=== PATIENT | male | born 1955 | race African-American/Black ===

== ENCOUNTER 2023-11-11 18:49 | Inpatient (IN) | payer BC, MEDICARE ==
[2023-11-11 21:36] VITALS: BMI 35.8
[2023-11-11] MEDS ORDERED: Bisacodyl 5 MG TAB PO PRN (21:58)
[2023-11-11] MEDS ORDERED: Ibuprofen 200 MG TAB PO PRN (21:58)
[2023-11-11] MEDS ORDERED: Acetaminophen 325 MG TAB PO PRN (21:58)
[2023-11-11] MEDS ORDERED: Ondansetron ODT 4 MG TAB PO PRN (21:58)
[2023-11-11] MEDS: Lactated Ringer's 1,000 ML IV SCH (23:23)
[2023-11-12 00:19] LABS: Creatinine, Urine 60.39 mg/dL (63-166)
[2023-11-12 07:43] LABS: Hemoglobin A1c 7.1 % (4.0-6.0)
[2023-11-12 08:06] LABS: ALT (SGPT) 24 U/L (8-55); AST (SGOT) 41 U/L (5-34); Albumin 3.3 g/dL (3.4-4.8); Alkaline Phosphatase 73 U/L (40-110); Anion Gap 14 mmol/L (10-20); BUN (Urea Nitrogen) 14 mg/dL (8.4-25.7); Bilirubin, Total 0.5 mg/dL (0.2-1.2); Calc. Creatinine Clearance 45 mL/min (70-130); Calcium 8.8 mg/dL (7.8-10.44); Carbon Dioxide 22 mmol/L (23-31); Chloride 114 mmol/L (98-107); Estimated GFR 28; Globulin 3.4 g/dL (2.4-3.5); Glucose 166 mg/dL (80-115); Potassium 3.9 mmol/L (3.5-5.1); Protein, Total 6.7 g/dL (5.8-8.1); Sodium 146 mmol/L (136-145)
[2023-11-12 08:12] LABS: Hematocrit 37.4 % (42.0-52.0); Hemoglobin 11.3 g/dL (14.0-18.0); Mean Corpuscular HGB CONC 30.2 g/dL (32.0-36.0); Mean Corpuscular Hemoglobin 28.4 pg (27.0-31.0); Mean Platelet Volume 12.5 fL (7.4-10.4); Platelet Count 323 10x3/uL (130-400); RBC Distribution Width 15.9 % (11.5-14.5); Red Blood Cell (RBC) Count 3.98 mill/uL (4.70-6.10)
[2023-11-12] MEDS ORDERED: Acetaminophen 325 MG TAB ONE (09:55)
[2023-11-12] MEDS ORDERED: Amlodipine 10 MG TAB ONE (09:55)
[2023-11-12 10:15] LABS: Band 7 % (5-11); Large Platelets 32.8 % (0-5); Lymphocytes 29 % (21-51); Metamyelocyte 3 % (0-0); Monocytes 20 % (0-10); Neutrophil 22 % (42-75); Other Cell Types 17.2; Platelet Adequacy Comment Platelets Normal; RBC Morphology Within Normal Limits; Reactive Lymphocytes 3 % (0-10); Smudge Cells 7.8 %
[2023-11-12] MEDS: Cefepime 1 GM in Sodium Chloride 0.9% 100 ML IVPB SCH (16:58)
[2023-11-12 17:07] LABS: Troponin I 0.832 ng/mL (< 0.028)
[2023-11-12] MEDS: Amlodipine 10 MG TAB PO SCH (21:58)
[2023-11-13] MEDS: Cefepime 1 GM in Sodium Chloride 0.9% 100 ML IVPB SCH (04:19)
[2023-11-13 05:40] LABS: Hemoglobin 11.9 g/dL (14.0-18.0); Mean Corpuscular HGB CONC 31.3 g/dL (32.0-36.0); Mean Corpuscular Hemoglobin 28.4 pg (27.0-31.0); Mean Corpuscular Volume 90.7 fL (78.0-98.0); Mean Platelet Volume 12.2 fL (7.4-10.4); Platelet Count 379 10x3/uL (130-400); RBC Distribution Width 15.6 % (11.5-14.5); Red Blood Cell (RBC) Count 4.19 mill/uL (4.70-6.10)
[2023-11-13 06:02] LABS: ALT (SGPT) 29 U/L (8-55); AST (SGOT) 46 U/L (5-34); Albumin 3.3 g/dL (3.4-4.8); Alkaline Phosphatase 77 U/L (40-110); Anion Gap 13 mmol/L (10-20); BUN (Urea Nitrogen) 9 mg/dL (8.4-25.7); Bilirubin, Total 0.3 mg/dL (0.2-1.2); Calc. Creatinine Clearance 54 mL/min (70-130); Calcium 8.9 mg/dL (7.8-10.44); Carbon Dioxide 23 mmol/L (23-31); Chloride 113 mmol/L (98-107); Estimated GFR 36; Globulin 3.6 g/dL (2.4-3.5); Glucose 206 mg/dL (80-115); Potassium 3.4 mmol/L (3.5-5.1); Protein, Total 6.9 g/dL (5.8-8.1); Sodium 146 mmol/L (136-145)
[2023-11-13 06:05] LABS: Band 6 % (5-11); Large Platelets 4.8 % (0-5); Lymphocytes 43 % (21-51); Macrocytosis SLIGHT = 6-15 cells HPF (0-5); Metamyelocyte 3 % (0-0); Monocytes 17 % (0-10); Neutrophil 14 % (42-75); Platelet Adequacy Comment Platelets Normal; Reactive Lymphocytes 1 % (0-10)
[2023-11-13] MEDS: Potassium Chloride 20 MEQ TAB PO SCH (08:28)
[2023-11-13] MEDS: DASATINIB 100 MG PO SCH (08:29)
[2023-11-13 09:20] LABS: Bilirubin Negative (Negative); Blood, Urine 3+ (Negative); CAUTI Indications for Culture Acute Hematuria; Clarity Clear (Clear); Glucose, Urine (Dipstick) Normal (Negative); Ketone, Urine Negative (Negative); Leukocyte 25 Leu/uL (Negative); Nitrite Negative (Negative); Protein, Urine (Dipstick) 20 mg/dL (Neg-Trace); Specific Gravity, Urine 1.004 (1.002-1.036); Squamous Epithelial None Seen HPF (0-3); Urobilinogen Normal mg/dL (Less than 2); WBC/HPF 0-3 HPF (0-3)
[2023-11-13 09:21] VITALS: BMI 34.7
[2023-11-13 09:21] LABS: Bacteria/HPF Rare-Few HPF (None Seen); Urine Culture Reflex No No
[2023-11-13 10:10] LABS: Magnesium 1.9 mg/dL (1.6-2.6)
[2023-11-14 04:48] LABS: Hematocrit 41.4 % (42.0-52.0); Hemoglobin 12.9 g/dL (14.0-18.0); Mean Corpuscular HGB CONC 31.2 g/dL (32.0-36.0); Mean Corpuscular Hemoglobin 28.2 pg (27.0-31.0); Mean Corpuscular Volume 90.6 fL (78.0-98.0); Mean Platelet Volume 12.6 fL (7.4-10.4); Platelet Count 434 10x3/uL (130-400); RBC Distribution Width 15.7 % (11.5-14.5); Red Blood Cell (RBC) Count 4.57 mill/uL (4.70-6.10)
[2023-11-14 04:57] LABS: ALT (SGPT) 36 U/L (8-55); AST (SGOT) 55 U/L (5-34); Albumin 3.6 g/dL (3.4-4.8); Alkaline Phosphatase 83 U/L (40-110); Anion Gap 14 mmol/L (10-20); BUN (Urea Nitrogen) 8 mg/dL (8.4-25.7); Bilirubin, Total 0.4 mg/dL (0.2-1.2); Calc. Creatinine Clearance 53 mL/min (70-130); Calcium 9.6 mg/dL (7.8-10.44); Carbon Dioxide 21 mmol/L (23-31); Chloride 115 mmol/L (98-107); Estimated GFR 35; Globulin 4.2 g/dL (2.4-3.5); Glucose 224 mg/dL (80-115); Potassium 3.5 mmol/L (3.5-5.1); Protein, Total 7.8 g/dL (5.8-8.1); Sodium 146 mmol/L (136-145)
[2023-11-14 05:19] LABS: Band 5 % (5-11); Eosinophils 1 % (0-10); Large Platelets 23.3 % (0-5); Lymphocytes 52 % (21-51); Macrocytosis SLIGHT = 6-15 cells HPF (0-5); Monocytes 13 % (0-10); Neutrophil 11 % (42-75); Nucleated RBC (Manual Ct) 2 % (0); Platelet Adequacy Comment Platelets Increased; Polychromasia SLIGHT = 2-3 cells HPF (0-2); Reactive Lymphocytes 3 % (0-10)
[2023-11-14] MEDS ORDERED: Dextrose 50% Abboject 50 ML SYRINGE SLOW IVP PRN (06:52)
[2023-11-14] MEDS ORDERED: Dextrose 5% in Water 1,000 ML IV PRN (06:52)
[2023-11-14] MEDS ORDERED: Glucagon 1 MG/ML KIT IM PRN (06:52)
[2023-11-14] MEDS ORDERED: Insulin Lispro 100 UNIT/ML 10 ML VIAL SC PRN ×2 (07:00)
[2023-11-14] MEDS: Lactated Ringer's 1,000 ML IV SCH ×2 (11:47→13:05)
[2023-11-14 12:24] VITALS: TEMP 99
[2023-11-14 12:42] VITALS: BP 134/70
[2023-11-15] MEDS ORDERED: Polyethylene Glycol 3350 17 GM Packet PO SCH (09:00)
== END 2023-11-14 15:00 | disposition home or self-care (01) | DRG 682 ==
LOC: INTOOBSV 18:58 → 2NO 18:58 → OBSVTOIN 22:40
PROVIDERS: ADMIT Internal Medicine; ATTEND Internal Medicine
DX: N17.9 Acute kidney failure, unspecified (principal); I21.4 Non-ST elevation (NSTEMI) myocardial infarction; I21.A1 Myocardial infarction type 2; R65.10 Systemic inflammatory response syndrome (SIRS) of non-infectious origin without acute organ dysfunction; C92.10 Chronic myeloid leukemia, BCR/ABL-positive, not having achieved remission; M62.82 Rhabdomyolysis; E86.0 Dehydration; R31.9 Hematuria, unspecified; N20.0 Calculus of kidney; I10 Essential (primary) hypertension; E87.6 Hypokalemia; E11.65 Type 2 diabetes mellitus with hyperglycemia; N40.0 Benign prostatic hyperplasia without lower urinary tract symptoms; Z79.899 Other long term (current) drug therapy; M54.9 Dorsalgia, unspecified; R50.9 Fever, unspecified
CPT/HCPCS: 36415; 36416; 71046; 74176; 76770; 80053; 81001; 82308; 82550; 82570; 83036; 83605; 83615; 83690; 83735; 84145; 84300; 84484; 85025; 85060; 87040; 87086; 93005; 96374; 96375; G0378; J0692; J3370; J3490; J7030; J7120